=== PATIENT | male | born 1970 | race Caucasian/White ===

== ENCOUNTER 2017-02-04 07:01 | Day surgery (SDC) | payer MEDICAID ==
[~2017-02-04] VITALS: Ht 177.8 cm; Wt 90.5 kg
[~2017-02-04 07:01] MED LIST: ACETAMINOP160 MG/5 M PEG; BACITRACIN28.4 G2 TP; BENZTROPINE MESY2 M1 PEG; BENZTROPINE2 MG/2 M1 IM; CALMOSEPTINE OI71 G1 TP; CIPROFLOXA250 MG/5 M TP; DEBROX15 M1 EACH EAR; DEPAKENE250 MG/51 PEG; GEODON80 M1 PO; GUAIFENESIN200 M3 PEG; HALDOL5 MG/1 ML IM; HALOPERIDOL20 M1 PEG; HALOPERIDOL5 M1 PEG; HALOPERIDOL5 M1 PO; NYSTOP60 GM TP; PROTONIX40 M3 PEG; RISPERIDONE1 M1 PO; ROXICODONE5 M2 PEG; SODIUM BICARBO650 M1 PEG; SWEEN 24255 GM TP; TRAZODONE HCL50 M1 PO; VIOKACE 10,4401 EACH PEG; XARELTO20 M1 PEG
--- NOTE | 2017-02-04 08:25 | NUR ---
PT BROUGHT TO CCU FROM [facility] BY [facility]. ARRIVED ON THE UNIT AT APPROX 0705. PT SETTLED, VS TAKEN AND 20G IV STARTED IN RIGHT WRIST. VITALS WERE BP 104/82, RR 13, HR 59, 97% ON RA. PT TAKEN DOWN TO CT AT APPROX 0800. PT WAS GIVEN MEDS BY ANESTHESIA, HEAD CT COMPLETED AND PT RETURNED TO ROOM IN CCU AT APPROX 0820. VS STABLE, PT BREATHING ROOM AIR AT THAT TIME. [facility] CALLED FOR TRANSPORT BACK TO [facility].
== END 2017-02-04 08:50 ==
LOC: CTSCAN 07:01 → CCU 07:02 → CTSCAN 08:30
DX: G93.89 Other specified disorders of brain (principal); I10 Essential (primary) hypertension; Z79.899 Other long term (current) drug therapy; Z98.890 Other specified postprocedural states